=== PATIENT | female | born 1955 | race Hispanic/Latino ===

== ENCOUNTER 2019-12-28 18:09 | Emergency (ER) | payer MEDICARE ==
[2019-12-28 19:19] VITALS: BP 155/51
--- NOTE | 2019-12-28 19:56 | Emergency Department Report ---
Blank Doc - Documentation Documentation: 64-year-old female that presents with abscess to chin. This initial assessment/diagnostic orders/clinical plan/treatment(s) is/are subject to change based on patient's health status, clinical progression and re- assessment by fellow clinical providers in the ED. Further treatment and workup at subsequent clinical providers discretion. Patient/guardians urged not to elope from the ED as their condition may be serious if not clinically assessed and managed. Initial orders include: 1- Patient sent to [facility] for further evaluation and treatment
[2019-12-28 20:42] LABS: Basophils # (Auto) 0.1 K/mm3 (0.0-0.1); Basophils % (Auto) 0.6 % (0.0-1.8); Eosinophils # (Auto) 0.1 K/mm3 (0.0-0.4); Eosinophils % (Auto) 0.8 % (0.0-4.3); Hematocrit 35.9 % (30.3-42.9); Hemoglobin 12.1 gm/dl (10.1-14.3); Lymphocytes # (Auto) 1.6 K/mm3 (1.2-5.4); Lymphocytes % (Auto) 10.7 % (13.4-35.0); Mean Corpuscular HGB Conc 34 % (30-34); Mean Corpuscular Volume 93 fl (79-97); Monocytes # (Auto) 1.1 K/mm3 (0.0-0.8); Monocytes % (Auto) 7.2 % (0.0-7.3); Platelet Count 325 K/mm3 (140-440); Red Blood Count 3.86 M/mm3 (3.65-5.03)
[2019-12-28 21:05] LABS: Calcium 9.9 mg/dL (8.4-10.2)
[2019-12-28] MEDS ORDERED: SODIUM CHLORIDE 0.9% 1000 ML 1,000 ML IV ONE ×2 (21:09)
--- NOTE | 2019-12-28 21:26 | Emergency Department Report ---
- General Chief complaint: Skin/Abscess/Foreign Body Stated complaint: INFECTION ON FACE Time Seen by Provider: 12/28/19 19:54 Source: patient Mode of arrival: Ambulatory Limitations: No Limitations - History of Present Illness Initial comments: Patient is a 64-year-old female presents the emergency room with complaints of an abscess that began a week ago. She states that a week ago she had a pimple on the chin which she thought might have been an infected hair follicle. She states over time it has been increasing in size, increasing warmness, purulent drainage. She states that she saw her primary care doctor today and they advised for her to be evaluated in the emergency department. She denies any fever, being bit by anything, nausea, vomiting, diarrhea. She has a past medical history of diabetes, hypertension, COPD, hyperlipidemia. She has an allergy to codeine and sulfa. - Related Data Previous Rx's Medication Instructions Recorded Last Taken Type Clindamycin [Clindamycin CAP] 450 mg PO TID 7 Days #63 capsule 12/28/19 Unknown Rx Doxycycline Hyclate [Doxycycline 100 mg PO BID 7 Days #14 tab 12/28/19 Unknown Rx Hyclate TAB] traMADoL [Ultram 50 MG tab] 50 mg PO Q6HR PRN #10 tablet 12/28/19 Unknown Rx Allergies Allergy/AdvReac Type Severity Reaction Status Date / Time codeine Allergy Vomiting Unverified 06/19/14 14:21 Sulfa (Sulfonamide Allergy Vomiting Unverified 06/19/14 14:21 Antibiotics) Abscess Boil HPI - HPI Chief Complaint: Skin/Abscess/Foreign Body Stated Complaint: INFECTION ON FACE Time Seen by Provider: 12/28/19 19:54 Home Medications: Previous Rx's Medication Instructions Recorded Last Taken Type Clindamycin [Clindamycin CAP] 450 mg PO TID 7 Days #63 capsule 12/28/19 Unknown Rx Doxycycline Hyclate [Doxycycline 100 mg PO BID 7 Days #14 tab 12/28/19 Unknown Rx Hyclate TAB] traMADoL [Ultram 50 MG tab] 50 mg PO Q6HR PRN #10 tablet 12/28/19 Unknown Rx Allergies/Adverse Reactions: Allergies Allergy/AdvReac Type Severity Reaction Status Date / Time codeine Allergy Vomiting Unverified 06/19/14 14:21 Sulfa (Sulfonamide Allergy Vomiting Unverified 06/19/14 14:21 Antibiotics) ED Review of Systems ROS: Stated complaint: INFECTION ON FACE Other details as noted in HPI Comment: All other systems reviewed and negative ED Past Medical Hx - Past Medical History Hx Hypertension: Yes Hx Diabetes: Yes Hx COPD: Yes Additional medical history: hyperlipidemia - Surgical History Hx Appendectomy: Yes Additional Surgical History: - Social History Smoking Status: Former Smoker - Medications Home Medications: Home Medications Medication Instructions Recorded Confirmed Last Taken Type Clindamycin [Clindamycin CAP] 450 mg PO TID 7 Days #63 capsule 12/28/19 Unknown Rx Doxycycline Hyclate [Doxycycline 100 mg PO BID 7 Days #14 tab 12/28/19 Unknown Rx Hyclate TAB] traMADoL [Ultram 50 MG tab] 50 mg PO Q6HR PRN #10 tablet 12/28/19 Unknown Rx ED Physical Exam - General Limitations: No Limitations General appearance: alert, in no apparent distress - Head Head exam: Present: atraumatic, normocephalic - Eye Eye exam: Present: normal appearance - ENT ENT exam: Present: mucous membranes moist - Respiratory Respiratory exam: Present: normal lung sounds bilaterally. Absent: respiratory distress, wheezes, rales, rhonchi, stridor, chest wall tenderness, accessory muscle use, decreased breath sounds, prolonged expiratory - Cardiovascular Cardiovascular Exam: Present: regular rate, normal rhythm, normal heart sounds. Absent: systolic murmur, diastolic murmur, rubs, gallop - Neurological Exam Neurological exam: Present: alert, oriented X3 - Psychiatric Psychiatric exam: Present: normal affect, normal mood - Skin Skin exam: Present: warm, other (4 cm area of induration, edema, and erythema present to the chin, there are several small openings with purulent drainage, there is multiple areas of scabbing present, no central area of fluctuance, there are multiple openings, no necrosis, no invovlement of the neck) ED Course Vital Signs 12/28/19 12/28/19 19:18 23:24 Temperature 99.0 F Pulse Rate 80 87 Respiratory 20 17 Rate Blood Pressure 155/51 O2 Sat by Pulse 97 100 Oximetry ED Medical Decision Making - Lab Data Result diagrams: 12/28/19 20:31 12/28/19 20:31 Lab Results 12/28/19 12/28/19 12/28/19 Range/Units 20:31 20:31 22:57 WBC 14.8 H (4.5-11.0) K/mm3 RBC 3.86 (3.65-5.03) M/mm3 Hgb 12.1 (10.1-14.3) gm/dl Hct 35.9 (30.3-42.9) % MCV 93 (79-97) fl MCH 31 (28-32) pg MCHC 34 (30-34) % RDW 13.0 L (13.2-15.2) % Plt Count 325 (140-440) K/mm3 Lymph % (Auto) 10.7 L (13.4-35.0) % Rankin % (Auto) 7.2 (0.0-7.3) % Eos % (Auto) 0.8 (0.0-4.3) % Baso % (Auto) 0.6 (0.0-1.8) % Lymph # 1.6 (1.2-5.4) K/mm3 Rankin # 1.1 H (0.0-0.8) K/mm3 Eos # 0.1 (0.0-0.4) K/mm3 Baso # 0.1 (0.0-0.1) K/mm3 Seg Neutrophils % 80.7 H (40.0-70.0) % Seg Neutrophils # 12.0 H (1.8-7.7) K/mm3 Sodium 132 L (137-145) mmol/L Potassium 4.8 (3.6-5.0) mmol/L Chloride 92.9 L (98-107) mmol/L Carbon Dioxide 21 L (22-30) mmol/L Anion Gap 23 mmol/L BUN 17 (7-17) mg/dL Creatinine 1.0 (0.7-1.2) mg/dL Estimated GFR 56 ml/min BUN/Creatinine Ratio 17 % Glucose 387 H (65-100) mg/dL POC Glucose 302 H (70-105) Calcium 9.9 (8.4-10.2) mg/dL - Medical Decision Making Patient is a 64-year-old female presents the emergency room with complaints of an abscess that began a week ago. She states that a week ago she had a pimple on the chin which she thought might have been an infected hair follicle. She states over time it has been increasing in size, increasing warmness, purulent drainage. She states that she saw her primary care doctor today and they advis ed for her to be evaluated in the emergency department. She denies any fever, being bit by anything, nausea, vomiting, diarrhea. She has a past medical history of diabetes, hypertension, COPD, hyperlipidemia. She has an allergy to codeine and sulfa. VSS. labs significant for elevated WBC at 14k and elevated BG which improved after 1L of IVF to 302. on exam: 4 cm area of induration, edema, and erythema present to the chin, there are several small openings with purulent drainage, there is multiple areas of scabbing present, no central area of fluctuance, there are multiple openings, no necrosis, no invovlement of the neck. Examination consistent with cellulitis and abscess. It is already open and draining from multiple locations will treat patient with antibiotics and advised for her to see her primary care physician in 3-4 days to have the area reexamined, patient verbalized understanding. Patient given prescription for clindamycin, doxycycline, tramadol. Advised patient to please take medication as prescribed. Do not drive or operate heavy machinery while taking pain medication. Follow-up with your primary care doctor in the next 3-4 days for reexamination. Return to the emergency room for any new or worsening symptoms including but not limited to fever, worsening swelling, worsening drainage, worsening redness, vomiting, etc. - Differential Diagnosis abscess, cellulitis, folliculitis, carbuncle, furnuncle, cyst Critical care attestation.: If time is entered above; I have spent that time in minutes in the direct care of this critically ill patient, excluding procedure time. ED Disposition Clinical Impression: Abscess, Hyperglycemia Cellulitis Qualifiers: Site of cellulitis: face Qualified Code(s): L03.211 - Cellulitis of face Leukocytosis Qualifiers: Leukocytosis type: unspecified Qualified Code(s): D72.829 - Elevated white blood cell count, unspecified Disposition: DC-01 TO HOME OR SELFCARE Is pt being admited?: No Does the pt Need Aspirin: No Condition: Stable Instructions: Cellulitis (ED), Abscess (ED) Additional Instructions: please take medication as prescribed. Do not drive or operate heavy machinery while taking pain medication. Follow-up with your primary care doctor in the next 3-4 days for reexamination. Return to the emergency room for any new or worsening symptoms including but not limited to fever, worsening swelling, worsening drainage, worsening redness, vomiting, etc. Prescriptions: Clindamycin [Clindamycin CAP] 450 mg PO TID 7 Days #63 capsule Doxycycline Hyclate [Doxycycline Hyclate TAB] 100 mg PO BID 7 Days #14 tab traMADoL [Ultram 50 MG tab] 50 mg PO Q6HR PRN #10 tablet PRN Reason: Pain , Severe (7-10) Referrals: ROBBIN VARGAS MD [Primary Care Provider] - 3-5 Days Time of Disposition: 23:01 Print Language: TURKMEN
== END 2019-12-28 23:24 | disposition home or self-care (01) ==
LOC: ED 18:09
DX: E11.65 Type 2 diabetes mellitus with hyperglycemia (principal); L02.01 Cutaneous abscess of face; L03.211 Cellulitis of face; D72.829 Elevated white blood cell count, unspecified; I10 Essential (primary) hypertension; J44.9 Chronic obstructive pulmonary disease, unspecified; E78.5 Hyperlipidemia, unspecified
CPT/HCPCS: 36415; 80048; 82962; 85025; 96365; 99283; J7030